=== PATIENT | female | born 2000 | race Caucasian/White ===

== ENCOUNTER 2024-01-02 18:56 | Emergency (ER) | payer OTHER ==
[2024-01-02] MEDS ORDERED: Boostrix 0.5 ML (Tdap) VIAL (>/=7 yrs of age) ONE (19:18)
[2024-01-02] MEDS ORDERED: Ibuprofen 200 MG TAB ONE (19:39)
[2024-01-02] MEDS ORDERED: HYDROcodone/Acetaminophen 5/325 mg Tablet ONE (19:39)
== END 2024-01-02 20:42 | disposition home or self-care (01) ==
LOC: ERS 18:56
DX: S00.81XA Abrasion of other part of head, initial encounter (principal); S80.01XA Contusion of right knee, initial encounter; S80.212A Abrasion, left knee, initial encounter; V89.0XXA Person injured in unspecified motor-vehicle accident, nontraffic, initial encounter
CPT/HCPCS: 90471; 90715; G0390

== ENCOUNTER 2024-01-04 08:55 | Emergency (ER) | payer OTHER ==
[2024-01-04] MEDS ORDERED: Ketorolac Tromethamine 30 MG (1 mL) VIAL ONE (10:59)
== END 2024-01-04 11:07 | disposition home or self-care (01) ==
LOC: ERS 08:55
DX: S09.90XA Unspecified injury of head, initial encounter (principal); S80.02XA Contusion of left knee, initial encounter; S80.01XA Contusion of right knee, initial encounter; S05.12XA Contusion of eyeball and orbital tissues, left eye, initial encounter; V23.49XA Other motorcycle driver injured in collision with car, pick-up truck or van in traffic accident, initial encounter; Y93.89 Activity, other specified
CPT/HCPCS: 70450; 70486; 96372; J1885